=== PATIENT | female | born 1975 | race Two or more races ===

== ENCOUNTER 2018-06-26 04:56 | Emergency (ER) | payer MEDICAID ==
[~2018-06-26] VITALS: Ht 152.4 cm; Wt 63.5 kg
[2018-06-26 05:13] VITALS: BP 178/100
[2018-06-26] MEDS ORDERED: LIDOCAINE 1% (LOCAL ANESTH.) PF 5ml SDV ID ONE (06:45)
[2018-06-26] MEDS ORDERED: BACITRACIN TOP OINT 1 UD PKG TOP ONE (06:45)
[2018-06-26] MEDS ORDERED: LET TOPICAL SOLN 5 ML TOP ONE (06:45)
[2018-06-26] MEDS ORDERED: HYDROcodone-ACET 10/325MG TAB PO ONE (06:45)
[2018-06-26] MEDS ORDERED: KETOROLAC TROMETH 60MG/2ML VIAL IM ONE (06:45)
[2018-06-26] MEDS ORDERED: TETANUS-DIPTH-ACEL PERTUSSIS 0.5ML SYRG IM ONE (06:45)
[2018-06-26] MEDS ORDERED: LIDOCAINE 1% HCL (LOCAL ANESTH.) INJ 20ML MDV ONE (06:49)
[2018-06-26] MEDS ORDERED: cefTRIAXone SOD 1,000 MG VL IM ONE (07:30)
[2018-06-26] MEDS ORDERED: NEOMYCIN-BACITRACIN-POLYM UNITDOSE PKG TOP OINT TOP ONE (09:00)
[2018-06-26] MEDS ORDERED: NEOMYCIN-BACITRACIN-POLYM 15GM TOP OINT TOP ONE (09:05)
== END 2018-06-26 08:50 | disposition home or self-care (01) ==
LOC: ER 04:56 → EDBD 04:56 → ER 08:50
DX: S62.640A Nondisplaced fracture of proximal phalanx of right index finger, initial encounter for closed fracture (principal); S61.210A Laceration without foreign body of right index finger without damage to nail, initial encounter; S61.250A Open bite of right index finger without damage to nail, initial encounter; W54.0XXA Bitten by dog, initial encounter; Y93.89 Activity, other specified; Y92.89 Other specified places as the place of occurrence of the external cause; Y99.8 Other external cause status
CPT/HCPCS: 12002; 73130; 81025; 90471; 90715; 96372; 99284; J0696; J1885; J2001; J3490